=== PATIENT | female | born 1980 ===

== ENCOUNTER 2024-02-14 17:40 | Outpatient (REF) | payer BC, SELFPAY ==
[2024-02-14 16:19] LABS: Abs Immature Grans 0.01 10^3/uL (0.0-0.06); Absolute Basophil Count 0.04 10^3/uL (0.0-0.2); Absolute Eosinophil Count 0.17 10^3/uL (0.0-0.7); Absolute Lymphocyte Count 1.44 10^3/uL (1.2-3.4); Absolute Monocyte Count 0.64 10^3/uL (0.1-0.8); Absolute Neutrophil Count 4.44 10^3/uL (1.2-6.7); Basophils % 0.6 %; Eosinophils % 2.5 %; HCT 40.1 % (36.0-46.0); HGB 12.7 g/dL (11.2-15.7); Immature Grans % 0.1 %; Lymphocytes % 21.4 %; MCH 25.5 pg (27.0-33.0); MCHC 31.7 % (32.0-36.0); MCV 81 fL (80-95); MPV 10.5 fL (8.0-11.0); Monocytes % 9.5 %; Neutrophils % 65.9 %; Platelet Count 401 10^3/uL (130-400); RBC 4.98 10^6/uL (3.93-5.22); RDW 14.3 % (11.7-14.6); RDW-SD 41.2 fL; WBC 6.74 10^3/uL (4.4-10.8)
[2024-02-14 16:45] LABS: ALT 21 U/L (14-59); AST 14 U/L (15-37); Albumin 3.7 g/dL (3.4-5.0); Alkaline Phosphatase 66 U/L (46-116); Anion Gap 6.9 mmol/L (3-11); BUN 10 mg/dL (7-18); Bilirubin, Total 0.69 mg/dL (0.2-1.0); CO2 29.1 mmol/L (21.0-32.0); CREATININE 0.6 mg/dL (0.55-1.02); Calcium 9.1 mg/dL (8.5-10.1); Calculated LDL 127 mg/dL (<100); Chloride 103 mmol/L (98-107); Cholesterol 195 mg/dL (<200); Estimated GFR 114.15 (mL/min/1.73m2); Glucose 87 mg/dL (74-106); HDL Cholesterol 59 mg/dL (40-60); Potassium 4.6 mmol/L (3.5-5.1); Sodium 139 mmol/L (136-145); TSH (W/Ref FT4) 0.58 uIU/mL (0.36-3.74); Total Protein 7.3 g/dL (6.4-8.2); Triglyceride 46 mg/dL (<150)
== END 2024-02-14 17:41 | disposition home or self-care (01) ==
LOC: LBN 17:40
PROVIDERS: Visit Provider Nurse Practitioner Family
DX: E03.9 Hypothyroidism, unspecified (principal); Z00.00 Encounter for general adult medical examination without abnormal findings
CPT/HCPCS: 80053; 80061; 84443; 85025